=== PATIENT | female | born 2005 | race Caucasian/White ===

== ENCOUNTER 2025-07-20 21:12 | Emergency (ER) | payer BC, SELFPAY ==
--- NOTE | ~2025-07-20 | CT_ITS ---
CLINICAL HISTORY: R > L lower quadrant TTP CT abdomen and pelvis with contrast Comparison: None provided Findings: No consolidation or effusion. The liver is enlarged. There is periportal edema present. No significant fatty infiltration. No focal masses within the liver. Portal vein is patent. Hepatic veins appear normal. The spleen is normal. There is a small amount of pericholecystic fluid. This may be edema related to periportal edema seen in the liver. No fat stranding in the gallbladder fossa. No bowel obstruction, pneumoperitoneum, or pneumatosis. Moderate fecal loading in the right colon. Uterus and adnexa are normal. Appendix identified in the right lower quadrant, series 8, images 69 through 71, normal. Urinary bladder is normal. No ascites. The bones are intact. IMPRESSION: 1. Hepatomegaly with periportal edema and pericholecystic fluid. Findings could be related to underlying liver disease as well as other medical causes. Correlate with liver function values. This document has been electronically signed by: Stephon Candelaria MD on 07/21/2025 00:09:59
[2025-07-20 21:15] VITALS: BP 105/69; BP 110/70; PULSE 68; PULSE 80; RESP 16; TEMP 36.8; O2SAT 98; BMI 23.2
--- NOTE | 2025-07-20 21:22 | ED.ABDPAIN ---
HPI - Abdominal Pain General Chief Complaint: Abdominal Pain Stated Complaint: Ab pain headache N/V/D chills History of Present Illness ED Provider: Tk Marroquin MD HPI narrative: 19-year-old female with lower abdominal pain also started menses today but pain has been going on 2-3 days somewhat cramping occasionally sharp associated with diarrhea no blood dark stool. Nauseous occasional nonbloody nonbilious vomiting. No flank pain no dysuria no vaginal discharge. No recent antibiotics travel outside the country abdominal trauma she feels some pain in the upper abdomen. She does smoke marijuana daily. Related Data Allergies Allergy/AdvReac Type Severity Reaction Status Date / Time No Known Allergies Allergy Verified 07/20/25 21:22 [facility] Social History Social History Substance Use Type: Marijuana Physical Exam ED Exam Exam: EXAM: Gen: Alert, awake, well appearing, well hydrated. Head: Atraumatic Eyes: Anicteric, Normal conjunctiva. ENT: Moist mucosa, no pallor. ? Neck: Supple. Skin: ?No observable rash or bruising on exposed or examined skin Respiratory: Breathing comfortably, No distress.Clear to auscultation bilaterally, symmetric chest expansion, No wheeze, rales, ronchi. Cardiovascular: Regular rate and rhythm. No murmurs or rub. Well perfused periphery, warm extremities. No edema. ? Abdominal: Moderate tenderness across the lower abdomen is some focal right lower quadrant tenderness midepigastric tenderness as well Soft, no objective distension. No palpable masses or obvious organomegaly. ?No guarding, no rebound tenderness or other peritoneal findings. : No flank tenderness. Neuro: Alert. Gross movement of all extremities intact. ? Psych: Calm. Cooperative. MSK: No grossly visible deformity. Vital signs: See flowsheet Vital Signs: Vital Signs - 24 hr 07/20/25 21:15 07/21/25 00:30 07/21/25 01:12 Temperature 98.3 F 98.5 F 98.5 F Pulse Rate 68 86 86 Respiratory Rate 16 16 16 Blood Pressure 105/69 103/53 L 103/53 L Pulse Oximetry 98 99 99 Oxygen Delivery Method Room Air Room Air Room Air BMI result Body Mass Index 23.2 Procedures Procedure Narrative Procedure Narrative: EMERGENCY ULTRASOUND INTERPRETATION- Limited Point of Care Biliary [This study was ordered, performed, and interpreted by myself. The study reveals: Impression: NO EVIDENCE OF ACUTE INFLAMMATION OF THE GALLBLADDER, NO EVIDENCE OF OBSTRUCTIVE BILIARY DISEASE] [Indication: RUQ PAIN Gallbladder: NO WALL THICKENING > 4MM, NO PERICHOLECYSTIC FLUID, NOT GROSSLY DILATED/HYDROPIC. -Additional: WALL MEASUREMENT: CBD MEASURMENT IF OBTAINED: Performed by: Tk Marroquin MD Images were stored CPT:[id number]] Medical Decision Making Medical Decision Making MDM Narrative: [age] female with lower abdominal pain nausea vomiting diarrhea. No recent antibiotics. No peritoneal signs. Biliary ultrasound reassuring CT described possibility of pericholecystic fluid this is not seen on biliary ultrasound see my report. Nor were there any masses or abnormalities on the visualized portions of the liver. Minimal transaminitis ALT predominant with no bilirubin elevation or alk phos nonobstructive lab pattern. She has not an alcoholic has no healthy hypoalbuminemia unclear wide a CT reading nonspecific finding of periportal edema strongly advised follow up with GI to further elucidate this patient feeling little bit better after antiemetics fluid Differential Diagnosis Differential Diagnoses: The differential diagnosis associated with the presentation includes Gastroenteritis food-borne illness appendicitis biliary colic pancreatitis cannabis hyperemesis dehydration electrolyte derangement Lab Data 07/20/25 21:37 07/20/25 21:37 Labs: Lab Results 07/20/25 Range/Units 21:37 WBC 5.9 (4.8-10.8) X10*3/uL RBC 3.47 L (4.20-5.50) X10*6/uL Hgb 10.7 L (12.0-16.0) g/dl Hct 33.0 L (37.0-47.0) % MCV 95.1 (80.0-98.0) fL MCH 30.8 (27.0-33.0) pg MCHC 32.4 (31.0-35.0) g/dl RDW 13.4 (11.0-16.0) % Plt Count 236 (160-400) X10*3/uL MPV 9.8 (9.4-12.3) fL Immature Gran % (Auto) 0.3 (0.0-0.4) % Neut % (Auto) 45.8 (45-73) % Lymph % (Auto) 46.3 H (20-40) % Esmeralda % (Auto) 4.9 (2-11) % Eos % (Auto) 2.0 (0-4) % Baso % (Auto) 0.7 (0-2) % Lymph # (Auto) 2.7 (1.2-4.9) X10*3/uL Esmeralda # (Auto) 0.3 (0.1-1.2) X10*3/uL Eos # (Auto) 0.1 (0.0-0.4) X10*3/uL Baso # (Auto) 0.0 (0.0-0.2) X10*3/uL Abs Immat Gran (auto) 0.02 (0.00-0.03) X10*3/uL Absolute Neuts (auto) 2.7 (2.0-8.3) x10*3/uL Absolute Nucleated RBC 0.000 (0.0-0.012) X10*3/uL Nucleated RBC % (auto) 0.0 (0.0-0.2) /100WBC Sodium 142 (135-145) mmol/L Potassium 3.3 (3.3-5.1) mmol/L Chloride 113 H (96-108) mmol/L Carbon Dioxide 24 (22-29) mmol/L Anion Gap 8 L (12-20) BUN 11 (9-16) mg/dL Creatinine 0.61 (0.5-1.4) mg/dL Estim Creat Clear Calc 131.2 Estimated GFR > 60 Random Glucose 81 (60-115) mg/dL Calcium 8.7 (8.4-10.2) mg/dL Magnesium 2.0 (1.6-2.6) mg/dL Total Bilirubin 0.3 (0.0-1.0) mg/dL AST 50 H (5-31) U/L ALT 54 H (0-31) U/L Alkaline Phosphatase 65 (39-117) U/L Total Protein 7.0 (6.5-8.0) g/dL Albumin 4.3 (3.5-5.0) g/dL Lipase 18 (8-78) U/L Beta HCG, Quant < 2 mIU/mL Urine Color Yellow Urine Appearance Clear Urine pH 8.0 (5.0-9.0) Ur Specific [place] 1.010 (1.005-1.025) Urine Protein Negative (Neg-Trace) mg/dL Urine Glucose (UA) Negative (Negative) mg/dL Urine Ketones Negative (Negative) mg/dL Urine Blood Moderate (2+) H (Negative) Urine Nitrite Negative (Negative) Ur Leukocyte Esterase Small (1+) H (Negative) Urine RBC 6-10 H (0-2) /HPF Urine WBC 11-20 H (0-5) /HPF Ur Squamous Epith Cells 0-2 (0-2) /HPF Urine Bacteria None Seen (None Seen) Hyaline Casts 0-2 (0-2) /LPF Influenza Type A (PCR) NEGATIVE (Negative) Influenza Type B (PCR) NEGATIVE (Negative) RSV RNA Qual (PCR) NEGATIVE (Negative) SARS-CoV-2 RNA (RT-PCR) NEGATIVE (Negative) Independent Historian Clinical information obtained from an independent historian. History obtained from or confirmed by: Friend Medications Administered Discontinued Medications Generic Name Dose Route Start Last Admin Trade Name Freq PRN Reason Stop Dose Admin Dicyclomine HCl 10 mg 07/20/25 22:13 07/20/25 22:39 Dicyclomine Hcl 10 Mg Capsule PO 07/20/25 22:14 10 mg ONCE ONE Administration Lactated Ringer's 1,000 mls @ 999 mls/hr 07/20/25 22:15 07/20/25 23:40 Lr IV 07/20/25 23:15 Infused .Q1H1M ESTELITA Infusion Iohexol 85 ml 07/20/25 23:44 07/20/25 23:44 Iohexol 350 Mg/Ml 100 Ml Infus..Btl IV 07/20/25 23:45 85 ml ONCE ONE Administration Ketorolac Tromethamine 15 mg 07/20/25 22:13 07/20/25 22:39 Ketorolac Tromethamine 15 Mg/Ml Vial IVPUSH 07/20/25 22:14 15 mg ONCE ONE Administration Discharge Plan Discharge Clinical Impression: Abnormal transaminases, Abdominal pain Patient Disposition: Home, Self-Care Instructions: Acute Abdominal Pain (ED) Additional Instructions: You were evaluated for abdominal pain upper and lower. Your lab work was reassuring you had only minimal transaminitis meeting mild elevated liver enzymes. We sent additional tests for viral hepatitis but these have not yet returned we will call you if those are positive. CT of your abdomen was reassuring but did have some findings that we were unable to correlate with your presentation including edema or swelling around your portal vein and structures in your liver an ultrasound your liver and gallbladder did not show any major abnormalities or gallstones. We strongly urge you to follow up with a lithography contact worker as soon as you can if you establish a primary doctor they can refer you ____ CT findings are detailed below: CT: CLINICAL HISTORY: R > L lower quadrant TTP CT abdomen and pelvis with contrast Comparison: None provided Findings: No consolidation or effusion. The liver is enlarged. There is periportal edema present. No significant fatty infiltration. No focal masses within the liver. Portal vein is patent. Hepatic veins appear normal. The spleen is normal. There is a small amount of pericholecystic fluid. This may be edema related to periportal edema seen in the liver. No fat stranding in the gallbladder fossa. No bowel obstruction, pneumoperitoneum, or pneumatosis. Moderate fecal loading in the right colon. Uterus and adnexa are normal. Appendix identified in the right lower quadrant, series 8, images 69 through 71, normal. Urinary bladder is normal. No ascites. The bones are intact. IMPRESSION: 1. Hepatomegaly with periportal edema and pericholecystic fluid. Findings could be related to underlying liver disease as well as other medical causes. Correlate with liver function values. This document has been electronically signed by: Stephon Candelaria MD on 07/21/2025 00:09:59 Interventions: ED Discharge Assessment Last Done: 07/21/25 01:12 Discharge Date/Time: 07/21/25 01:14 Print Language: Mauritanian
[2025-07-20 21:43] LABS: MANUAL DIFF FLAG NO
[2025-07-20 21:44] LABS: Hematocrit 33.0 % (37.0-47.0); Hemoglobin 10.7 g/dl (12.0-16.0); Imm Gran Abs Auto 0.02 X10*3/uL (0.00-0.03); Imm Gran Pct Auto 0.3 % (0.0-0.4); Lymphocytes Absolute Auto 2.7 X10*3/uL (1.2-4.9); Mean Corpuscular HGB Conc 32.4 g/dl (31.0-35.0); Mean Corpuscular Hemoglobin 30.8 pg (27.0-33.0); Mean Corpuscular Volume 95.1 fL (80.0-98.0); NRBC Abs Auto 0.000 X10*3/uL (0.0-0.012); NRBC Pct Auto 0.0 /100WBC (0.0-0.2); Platelet Count 236 X10*3/uL (160-400); Red Blood Count 3.47 X10*6/uL (4.20-5.50); White Blood Count 5.9 X10*3/uL (4.8-10.8)
[2025-07-20 21:45] LABS: Appearance Urine Clear; Glucose Urine UA Negative (Negative); PH 8.0 (5.0-9.0); Specific Gravity - Urine 1.010 (1.005-1.025); UMIC TRIGGER UACC YES
[2025-07-20 21:47] LABS: UACC Culture Trigger YES
[2025-07-20 22:03] LABS: Alanine Aminotransferase 54 U/L (0-31); Albumin Level 4.3 g/dL (3.5-5.0); Alkaline Phosphatase 65 U/L (39-117); Anion Gap 8 (12-20); Aspartate Amino Transferase 50 U/L (5-31); Blood Urea Nitrogen 11 mg/dL (9-16); Calcium 8.7 mg/dL (8.4-10.2); Carbon Dioxide 24 mmol/L (22-29); Chloride 113 mmol/L (96-108); Creatinine Clr Calc Pharmacy 131.2; Estimated Glomerular Filt Rate > 60; Lipase 18 U/L (8-78); Magnesium 2.0 mg/dL (1.6-2.6); Potassium 3.3 mmol/L (3.3-5.1); Sodium 142 mmol/L (135-145); Total Protein 7.0 g/dL (6.5-8.0)
--- OUTSIDE RECORDS SUMMARY | 2025-07-20 22:03 | XMS_ITS | Encounter Summary ---
Author Organization [facility] Address [address] 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 Name Role Phone Pratima Johnson MD Primary Care Provider Encounter Details Date Type Department Care Team (Late st Contact Info) Description 03/29/2021 External Documentation [facility] Nephrology [address] [id number] Jose Nash MD [address] [place] [address] Social History Tobacco Use Types Packs/Day Years Used Date Smoking Tobacco: Never Assessed Comments No Sex and Gender Information Value Date Recorded Sex Assigned at Not on file Legal Sex Female 2:01 AM EST Gender Identity Not on file Sexual Orientation Not on file documented as of this encounter Plan of Treatment Not on file documented as of this encounter Visit Diagnoses Not on filedocumented in this encounter Care Teams [employer]el Locomotive 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
--- OUTSIDE RECORDS SUMMARY | 2025-07-20 22:03 | XMS_ITS | Data Portability ---
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 Due to the nature of telemedicine the ability to do physical assessment was limited to what can be accomplished by patient directed video recording based on instruction. Those limits are understood by the patient and myself. Impression is based on history, available information and physical findings accomplished with video assist. Chronic disease/problem list/medication list reviewed and updated where indicated. Discussed diagnosis, plan including risks, benefits and options of treatment. Advised to call for new, worsening or persistent symptoms. Level of patient risk was of moderate complexity due to the documented nature of presentation, the information assessment required and the nature of the development of an evaluation and treatment plan as documented. PMH, FHx, SHx, Surgical Hx, Quality Management review carried out and addressed as documented today as part of this visit. Medication list was reviewed and adjusted as indicated. Medication requiring a refill was addressed. Risk and benefits of any new medications were discussed and all questions answered. Potential drug interactions were considered. Patient is encouraged to visit and use our patient communicator portal as a general health care informational tool, as a means of reviewing all visit testing, patient specific information and visit summary recommendations generated as part of all patient visits, as a secure means of communication with our office and the doctor for any purpose any time and as a great means to get a copy of patient specific medical records as needed any time and anywhere. Help is always available from our staff as needed for instruction on using the portal to its fullest and for the re-issue of the needed pin numbers as well as step by step instructions on gaining access to and using the secure patient portal. The secure patient portal is a huge benefit of being a patient in this practice and we can't recommend its daily use enough. colby Not available 03/20/2023 11:42:28 Plan of Treatment Reminders Order Date Submit Date Provider Last Modified By Organization Details Last Modified Time Details Appointments None recorde d. Lab None recorde d. 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 Work on ROm 2022 023 [facility], [address] [place] [address], [id number], 3 16:11:13 Procedures None recorde d. Surgeries None recorde d. Imaging XR, hand, 3 or more view 2024 025 [facility], [address] [place] [address], Floor [address], [place], [address], 5 08:40:49 XR, hand, 3 or more view 2022 023 [facility], [address] [place] [address], Floor [address], [place], [address], 3 07:59:53 XR, hand, 3 or more view [address] [facility], [address] [place] [address], [address], [place], [address], 3 14:18:58 Medication Orders Celesto ne Soluspa n 6 mg/mL suspens ion for injecti on 2024 025 [id number], [address] [place], [phone], 5 16:40:31 lidocai ne HCl 10 mg/mL (1 %) injecti on solutio n 2024 025 [id number], [address] [place], [place], [phone], 5 16:40:31 Patient TargetsNo targets recorded. Patient InstructionsNo instructions recorded. 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 Work on ROm Referring Physician: Aneesh Moreno, Orthopedic Surgery, Encounter Date: 12/16/2022 Results Created Date Observation Date Name Description Value Unit Range Abnormal Flag Note LastModifiedBy Organization Detail LastModifiedTime 11/20/1911/19/2022 PT INR PT 10.9 secon ds 9.4-12 .0 normal Not Available [facility] [address] [place] [address], [id number], 11/19/2022 11:37:16 11/20/19 23 11/19/2022 PT INR PT INR 1.1 0.8-1. 2 normal Not Available [facility] [address] [place] [address], [id number], 11/19/2022 11:37:16 11/20/19 23 11/19/2022 CBC WBC 4.84 k/uL 3.98-1 0.04 normal Not Available [facility] [address] [place] [address], [address], 11/19/2022 11:43:28 11/20/19 23 11/19/2022 CBC RBC 4.57 m/uL 3.93-5 .22 normal Not Available [facility] [address] [place] [address], [id number], 11/19/2022 11:43:28 11/20/19 23 11/19/2022 CBC HGB 13.0 g/dL 11.2-1 5.7 normal Not Available [facility] [address] [place] [address], [address], 11/19/2022 11:43:28 11/20/19 23 11/19/2022 CBC HCT 40.4 % 34.1-4 4.9 normal Not Available [facility] [address] [place] [address], [address], 11/19/2022 11:43:28 11/20/19 23 11/19/2022 CBC MCV 88.4 fL 79.4-9 4.8 normal Not Available [facility] [address] [place] [address], [address], 11/19/2022 11:43:28 11/20/19 23 11/19/2022 CBC MCH 28.4 pg 25.6-3 2.2 normal Not Available [facility] [address] [place] [address], [address], 11/19/2022 11:43:28 11/20/19 23 11/19/2022 CBC MCHC 32.2 g/dL 32.2-3 5.5 normal Not Available [facility] [address] [place] [address], [address], 11/19/2022 11:43:28 11/20/19 23 11/19/2022 CBC RDW 13.4 % 11.7-1 4.4 normal Not Available [facility] [address] [place] [address], [address], 11/19/2022 11:43:28 11/20/19 23 11/19/2022 CBC platelet count 274 k/uL 182-36 9 normal Not Available [facility] [address] [place] [address], [address], 11/19/2022 11:43:28 11/20/19 23 11/19/2022 CBC MPV 10.0 fL 9.4-12 .3 normal Not Available [facility] [address] [place] [address], [address], 11/19/2022 11:43:28 11/20/19 23 11/19/2022 CBC absolute NRBC count 0.000 k/uL 0.000- 0.012 normal Not Available [facility] [address] [place] [address], [address], 11/19/2022 11:43:28 11/20/19 23 11/19/2022 CBC NRBC % 0.0 % 0.0-0. 2 normal Not Available [facility] [address] [place] [address], [address], 11/19/2022 11:43:28 11/20/19 23 11/19/2022 BASIC METAB OLIC glucose level 85 mg/dL 70-109 normal Gluco se Inter preti ve Data: A candace l fasti ng gluco se shirlene ntrat ion is less than 110 mg/dL . An impai red fasti ng gluco se shirlene ntrat ion is 110 - 125 mg/dL . A provi siona l diagn osis of diabe faisal can be made when a fasti ng gluco se shirlene ntrat ion is great er than 125 mg/dL . Not Available [facility] [address] [place] [address], [address], 11/19/2022 11:56:16 11/20/19 23 11/19/2022 BASIC METAB OLIC BUN 11 mg/dL 7-26 normal Not Available [facility] [address] [place] [address], [id number], 11/19/2022 11:56:16 11/20/19 23 11/19/2022 BASIC METAB OLIC creatinine 0.8 mg/dL 0.6-1. 1 normal Estim ated Glome rular Filtr ation Rate Inter preti ve Data: The Natio nal Kidne y Disea se Found ation (NKDF ) recom mends repor ting the estim ated Glome rular Filtr ation Rate (GFR) with every serum Creat inine resul t. [facility] r repor ts two estim ated GFRs; Afric an Ameri can (EST GFR AFRAM ER) and non-A frica n Ameri can (EST GFR NONAF R). The calcu latio n used is the main Perezif icati on of Diet in Renal Disea se Study equat ion (MDRD ) as recom kisha d by the NKDF. Not Available [facility] [address] [place] [address], [address], 11/19/2022 11:56:16 11/20/19 23 11/19/2022 BASIC METAB OLIC est GFR aframer >90 mL/mi n/1.7 3m2 >=60 normal Not Available [facility] [address] [place] [address], [address], 11/19/2022 11:56:16 11/20/19 23 11/19/2022 BASIC METAB OLIC est GFR nonafr 90 mL/mi n/1.7 3m2 >=60 normal Not Available [facility] [address] [place] [address], [address], 11/19/2022 11:56:16 11/20/19 23 11/19/2022 BASIC METAB OLIC Na 139 mmol/ L 136-14 5 normal Not Available [address], [address], 11/19/2022 11:56:16 11/20/19 23 11/19/2022 BASIC METAB OLIC K 4.0 mmol/ L 3.5-5. 1 normal Not Available [address], [address], 11/19/2022 11:56:16 11/20/19 23 11/19/2022 BASIC METAB OLIC cL 107 mmol/ L 98-107 normal Not Available [facility] [address] [place] [address], [address], 11/19/2022 11:56:16 11/20/19 23 11/19/2022 BASIC METAB OLIC CO2 26 mmol/ L 22-29 normal Not Available [facility] [address] [place] [address], [address], 11/19/2022 11:56:16 11/20/19 23 11/19/2022 BASIC METAB OLIC anion gap 10 10-20 normal Not Available [facility] [address] [place] [address], [address], 11/19/2022 11:56:16 11/20/19 23 11/19/2022 BASIC METAB OLIC calcium 9.7 mg/dL 8.4-10 .2 normal Not Available [facility] [address] [place] [address], [address], 11/19/2022 11:56:16 11/27/19 23 11/25/2022 XR, finge r(s) No observ ation record ed. [email or web address], [address], 11/26/2022 18:09:26 Result Notes None recorded. 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 Procedures Surgical History Date Name Laterality Status Provider Name and Address Organization Details Recorded Time 11/03/19 Radiology Interpretation #[address] completed MD [address], [place], [address], [facility] 11/03/2024 13:29:24 11/03/19 25 JB_FingerInjection s completed Chasity Hinton [facility] 11/02/2024 16:32:55 01/31/20 Radiology Interpretation #1 completed MD [address], [place], [address], [facility] 01/30/2023 16:22:38 12/17/19 Radiology Interpretation #1 completed MD [address], [place], [address], [facility] 12/16/2022 13:26:55 11/26/19 OPEN REDUCTION INTERNAL FIXATION, METACARPAL (SURG) completed Marine Schwartz [facility] 11/26/2022 10:38:47 11/07/19 Radiology Interpretation #1 completed MD [address], [place], [address], [facility] 11/06/2022 16:28:10 10/09/19 Radiology Interpretation #1 completed MD [address], [place], [address], [facility] 10/08/2022 16:34:30 09/17/19 Radiology Interpretation #1 completed MD [address], [place], [address], [facility] 09/17/2022 16:25:40 09/17/19 23 JB_fracturebrace completed MD Rad[address], [place], [address], [facility] 09/17/2022 16:28:21 07/28/19 23 Orthopaedic Surgery completed Chasity Hinton [facility] 11/02/2024 15:40:18 Imaging Results None recorded. Procedure Notes None recorded. Medical Equipment None Reported. Allergies No known drug allergies Medications Name Sig Start Date Stop Date Status Note LastModified by Organization Details LastModified Time quetiapine 25 mg tablet TAKE 1 TABLET BY MOUTH TWICE DAILY 11/02 completed Not Available Not Available Not Available lidocaine HCl 10 mg/mL (1 %) injection solution Take 0.5 mL as needed by injection route as needed. 2024 active Not Available Not Available Not Av[facility] promethazin e-DM 6.25 mg-15 mg/5 mL oral syrup TAKE 5 ML BY MOUTH FOUR TIMES DAILY NEEDED FOR COUGH 11/02 completed Not Available Not Available Not Available venlafaxine ER 37.5 mg capsule,ext ended release 24 hr TAKE 1 CAPSULE BY MOUTH DAILY active Not Available Not Available No t Available acetaminoph en 325 mg tablet TAKE 2 TABLETS BY MOUTH FOUR TIMES DAILY NEEDED FOR PAIN active Not Available Not Available No t Available venlafaxine ER 75 mg capsule,ext ended release 24 hr TAKE 1 CAPSULE BY MOUTH DAILY active Not Available Not Available No t Available albuterol sulfate 2.5 mg/3 mL (0.083 %) solution for nebulizatio n INHALE 1 UNIT EVERY 8 HOURS NEEDED FOR WHEEZING active Not Available Not Available No t Available levetiracet am 500 mg tablet 11/02 completed Not Available Not Available Not Available Celestone Soluspan 6 mg/mL suspension for injection Take 1 mL as needed by injection route as needed. 2024 active Not Available Not Available Not Isaiah goyal prazosin 1 mg capsule TAKE 1 CAPSULE BY MOUTH AT BEDTIME active Not Available Not Available No t Available prednisone 20 mg tablet TAKE 2 TABLETS BY MOUTH DAILY FOR 5 DAYS 11/02 completed Not Available Not Available Not Available quetiapine 100 mg tablet TAKE 1 TABLET BY MOUTH AT BEDTIME active Not Available Not Available No t Available ketorolac 10 mg tablet TAKE 1 TABLET BY MOUTH EVERY 6 HOURS NEEDED FOR PAIN 09/13 completed Not Available Not Available Not Available oxycodone-a cetaminophe n 5 mg-325 mg tablet TAKE 1 TABLET BY MOUTH EVERY 4 HOURS NEEDED FOR PAIN 11/02 completed Not Available Not Available Not Available estradiol 1 mg tablet TAKE 1 TABLET BY MOUTH EVERY DAY active Not Available Not Available No t Available fluticasone propionate 44 mcg/actuati on HFA aerosol inhaler INHALE 2 PUFFS INTO THE LUNGS TWICE DAILY FOR 14 DAYS active Not Available Not Available No t Available sertraline 25 mg tablet TAKE 1 TABLET BY MOUTH DAILY 09/13 completed Not Available Not Available Not Available hydrocortis one 2.5 % topical cream APPLY TOPICALLY TO THE AFFECTED AREA TWICE DAILY active Not Available Not Available No t Available hydroxyzine HCl 25 mg tablet TAKE 1 TABLET BY MOUTH FOUR TIMES DAILY FOR 3 DAYS NEEDED FOR ANXIETY active Not Available Not Available No t Available levetiracet am 750 mg tablet TAKE 1 TABLET BY MOUTH IN THE MORNING AND IN THE EVENING 11/02 completed Not Available Not Available Not Available ergocalcife rol (vitamin D2) 1,250 mcg (50,000 unit) capsule TAKE 1 CAPSULE BY MOUTH 1 TIME A WEEK active Not Available Not Available No t Available ibuprofen 600 mg tablet TAKE 1 TABLET BY MOUTH EVERY 6 HOURS NEEDED active Not Available Not Available No t Available methylpredn isolone 4 mg tablets in a dose pack FOLLOW PACKAGE DIRECTION S 11/02 completed Not Available Not Available Not Available albuterol sulfate HFA 90 mcg/actuati on aerosol inhaler INHALE 2 PUFFS BY MOUTH EVERY 6 HOURS NEEDED FOR WHEEZING active Not Available Not Available No t Available ondansetron 4 mg disintegrat ing tablet TAKE 1 TABLET (4 MG) BY MOUTH EVERY 8 HOURS NEEDED FOR NAUSEA active Not Available Not Available No t Available fluticasone propionate 50 mcg/actuati on nasal spray,suspe nsion SHAKE LIQUID AND USE 2 SPRAYS IN EACH NOSTRIL TWICE DAILY active Not Available Not Available No t Available sertraline 50 mg tablet TAKE 1 TABLET BY MOUTH DAILY 09/13 completed Not Available Not Available Not Available medroxyprog esterone 150 mg/mL intramuscul ar suspension ADMINISTE R 1 ML IN THE MUSCLE EVERY 3 MONTHS active Not Available Not Available No t Available naproxen 500 mg tablet TAKE 1 TABLET BY MOUTH TWICE DAILY FOR 7 DAYS NEEDED FOR PAIN active Not Available Not Available No t Available amoxicillin 875 mg-potassiu m clavulanate 125 mg tablet TAKE 1 TABLET BY MOUTH TWICE DAILY FOR 5 DAYS 11/02 completed Not Available Not Available Not Available Comp-Air Nebulizer Compressor USE DIRECTED active Not Available Not Available No t Available Flovent HFA 220 mcg/actuati on aerosol inhaler INHALE 1 PUFF INTO THE LUNGS TWICE DAILY active Not Available Not Available No t Available cholecalcif lionel (vitamin D3) 25 mcg (1,000 unit) tablet TAKE 1 TABLET BY MOUTH TWICE DAILY active Not Available Not Available No t Available Calcium 500 With D 500 mg-10 mcg (400 unit) tablet TAKE 1 TABLET BY MOUTH THREE TIMES DAILY active Not Available Not Available No t Available Vitamin D3 50 mcg (2,000 unit) tablet TAKE 1 TABLET BY MOUTH ONCE DAILY 09/13 completed Not Available Not Available Not Available ProChamber USE DIRECTED 09/13 completed Not Available Not Available Not Available Vitals Date Recorded Body height Heart rate Body temperature Body mass index (BMI) Body weight Systolic And Diastolic Provider Name and Address Organization Details Last Updated DateTime 160.02 cm 80 /min 98.3 [degF] 21.3 kg/m2 68305.0 8 g 117/80 mm[Hg] Chasity Hinton [facility] 15:45:03 Date Recorded Body height Provider Name an d Address Organization Details Last Updated DateTime 12/16/2022 [facility] 12/16/2022 11:29:58 Date Recorded Body height Provider Name an d Address Organization Details Last Updated DateTime 12/31/2022 165.1 cm [facility] 12/31/2022 15:44:26 Date Recorded Body height Provider Name an d Address Organization Details Last Updated DateTime 01/30/2023 165.1 cm [facility] 01/30/2023 16:09:38 Date Recorded Body height Provider Name an d Address Organization Details Last Updated DateTime 03/13/2023 165.1 cm [facility] 03/13/2023 15:01:55 Social History Question Answer Notes LastModified by Organizat ion Details LastModified Time Tobacco Smoking Status Never Smoker [facility] 09/17/2022 11:32:39 Are You Blind Or Do You Have Difficulty Seeing? No Information not available 09/17/2022 Is Blood Transfusion Acceptable In An Emergency? Yes Information not available 09/17/2022 What Is Your Level Of Caffeine Consumption? Occasional Information not available 09/17/2022 Are You Deaf Or Do You Have Serious Difficulty Hearing? No Information not available 09/17/2022 What Is The Highest Grade Or Level Of School You Have Completed Or The Highest Degree You Have Received? [id number] Information not available 09/17/2022 Which Of Your Hands Is Dominant? Right Information not available 09/17/2022 What Is Your Home Situation? Mother Information not available 09/17/2022 What Is Your Relationship Status? Single Information not available 09/17/2022 Are You Passively Exposed To Smoke? No Information no t available 09/17/2022 How Much Tobacco Do You Smoke? No Information not available 09/17/2022 How Many Years Have You Smoked Tobacco? 0 Information not available 09/17/2022 Have You Used IV Drugs? No Information not available 09/17/2022 How Many Years Have You Used E-cigarettes Or Vape? 0 Information not available 09/17/2022 Sex: Female Functional Status Question Answer Note LastModified by Organizat ion Details LastModified Time Do you use any illicit or recreational drugs? No Information not available 09/17/2022 Do you or have you ever used any other forms of tobacco or nicotine? No Information not available 09/17/2022 What is your level of alcohol consumption? Occasional Information not available 09/17/2022 Do you or have you ever used smokeless tobacco? Never used smokeless tobacco Information not available 09/17/2022 Are you currently employed? No Information not available 09/17/2022 Are you able to walk independently without assistance or assistive devices? YESWOREST Information not available 09/17/2022 Are you able to care for yourself independently? Yes Information not available 09/17/2022 Do you or have you ever used e-cigarettes or vape? Never used electronic cigarettes Information not available 09/17/2022 What is your exercise level? Moderate Information not available 09/17/2022 Mental Status Question Answer Note LastModified by Organization D etails LastModified Time Do you feel stressed (tense, restless, nervous, or anxious, or unable to sleep at night)? [id number] Information not available 09/17/2022 Family History Nothing Reported. Medical History Condition Response Anxiety Disorder Y Muscle, Joint, or Bone Problems Y Vitamin D Deficiency Y Seizures/Epilepsy Y Depression Y Gynecological History Statement/Question Response Have you had a pap smear in the last 2 y ears? 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 There is some angulation but is acceptable . So she may lose a slight bit of extension but I think most of difficulty with ROM right now due to pain and swelling. She wear the Exos brace for the next 3 weeks in follow-up for revisional and new x-rays and start moving. [id number] ANEESH MORENO MD Orthopedi [address] [place] [address] 10/08/2022 15:25:10 10/08/2022 16:03:39 Closed fracture of metacarpal bone 875712563 S62.309A this is a fracture that occurred the right hand. There is some angulation but is acceptable . So she may lose a slight bit of extension but I think some extension lacking still due to pain. She has significan t pain so she continue with the brace for 2 more weeks and then begin to transition out of it I did offer her surgery she is unhappy with the bump on the dorsum hand that will be there for ever or the lack of extension if it's persist. Preop she wants to discontinu e with fracture bracing. Follow up in 4 weeks with new x-rays [id number] ANEESH MORENO MD Orthopedi [address] [place] [address] 11/06/2022 15:37:44 11/06/2022 16:26:27 Closed fracture of metacarpal bone [id number] S62.309A this is a fracture that occurred the right hand. There is some angulation but is acceptable . she is still having pain although it is healing as expected. She that she is not happy with the lack of extension in the small finger and now that the pain is better she still can't extend it fully and feels that she can't flex it fully either. So the only way to counteract that would be surgery to take down the fx callus and straighten out the fracture so that she could again have full extension of the small finger patient says that since this is the dominant hand she wishes to proceed with that surgery. After comparing the likely outcomes of nonoperati ve versus operative treatment. Including all indication s risks, benefits, complicati ons, and different alternativ es, were discussed, and the patient decided to proceed with operative treatment. Complicati ons including infection, blood loss, blood clots, nerve injury, tendon injury, implant failure, failure to relieve all symptoms, need for additional surgery, malunion, nonunion, stiffness, loss of function risk of anesthesia , Stiffness . No guarantees were stated or implied. The patient understood the risks and was consented for surgery after these were discussed. All questions were answered. she takes Keppra which show only to be monitor vidhya op [id number] ANEESH MORENO MD Orthopedi [address] [place] [address] 12/16/2022 11:14:16 12/16/2022 12:01:42 Postoperative visit [id number] Z09 3wk post of Right hand fifth metacarpal open reduction internal fixation. She is doing well. She has some stiffness which is to be expected. I will send her to occupation al therapy to work on her range of motion. She does not need to immobilize the hand at this point since the screw fixation is good and so it is healing. She can soft dressing if needed. No soaking the wound for another week until the skin is healed. She can return to work at [employer] in a week. Follow up in 1 month to assess range of motion [id number] MD Anthony RAMOSedfrancesca [address] [place] [address] 12/31/2022 15:32:02 12/31/2022 15:53:11 Postoperative visit [id number] Z09 5 wks.christophe mcclain has regained full range of motion even though she has not been to occupation al therapy so there is no need for her to go. Seems like she had an eczematous rash over the scar which could be an eczema flare after surgery or it could be she contact dermatitis to either the Steri-Stri ps or something else that was used in the dressing. Juwan woodward seems to be self-resol ving and improving with the hydrocorti sone cream. She should continue to use that can also use Benadryl for itching if needed. Follow up next week as planned with x-rays [id number] MD Manfred RAMOS [address] [place] [address] 01/30/2023 15:46:07 01/30/2023 16:19:38 Postoperative visit [id number] Z09 2 mos status post right 5th metacarpal open reduction internal fixation she is doing very well the fracture is just about healed she has full range of motion and no pain. She also has a rash from a tick bite and I encouraged her to follow up with the primary care doctor to have that evaluated. Follow up in 6 weeks for 1 last visit [id number] MD Anthony RAMOSed[address] [place] [address] 03/13/2023 14:57:46 03/13/2023 15:27:53 Postoperative visit [id number] Z09 2.5 mos status post right 5th metacarpal open reduction internal fixation she is doing very well she is no pain full range of motion. However this was a tele visit the last x-rays show she still had some healing so she can continue with activity but I want her to follow up in 1 month for an office visit and an x-ray [id number] MD Anthony RAMOSedfrancesca [address] [place] [address] 11/02/2024 15:21:25 11/02/2024 16:34:52 Entrapment of right ulnar nerve at elbow [id number] G56.21 [id number] 11/02/24: Patient has symptoms consistent with cubital tunnel syndrome. Patient was instructed to sleep with their arms straight, avoid leaning on elbows and to avoid using a phone with the elbows in a flexed position. 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 I explained that usually this completely resolves the problem. However if symptoms persist or recur, injection can be repeated 1 time in 6 weeks. Should symptoms persist after that I would recommend surgical release of the A1 sandy I do not think her pain is related to his surgery I think he is actually more from trigger finger Health Concerns Section Related Observation LastModified by Organization Detai ls LastModified Time None Recorded Concern Status LastModified by Organization Details LastModified Time None Recorded Advance Directives Directive None Recorded Payers Insurance Date Sequence Insurance Name Policy Number Policy Melgoza Covered Member ID Melgoza Member ID Guarantor Name 12/26/2024 1 [facility] (MEDICAID HMO) [id number] Thiago Moses [id number] Thiago Moses Notes Date Note Type Note Provider Name and Address Organization Details Recorded Time 3 text/html Ortho Wrist/HandReported by PatientHPIFor associated symptoms, patient reportsweaknessandswellin g. For hand dominance, patient reportsright. For location, patient reportsright,right small finger, andright ring finger. For quality, patient reportsaching (of the small finger)andfrequent. For severity, patient reportspain level 3-4/10andworst pain 7/10. For duration, patient reportsdate of onset: (09/10/22). For timing, patient reportsacute. For context, patient reportsfall (seizure). For alleviating factors, patient reportsnsaids (tylenol)(has discontinued oxycodone. is wearing a splint). For aggravating factors, patient reportsgripping,grasping, squeezing, androm (is improving but still unable to fully extend or flex her finger). For previous surgery, patient reportssurgical procedure: (right hand fifth metacarpal open reduction internal fixation). For prior imaging, patient reportsx ray ([facility] office 12/16[facility]22). For previous injections, patient reportsnone. For previous pt, patient reportsnone. For working, patient reportsregular duty ([employer]).10/08/22 - Patient presents for a 3 wk f/u on closed fracture of right 5th metacarpal bone. She was placed in an Exos brace at her last visit. still having significant pain. 11/06/22 - Patient presents for a 4 wk f/u on closed fracture of right 5th metacarpal bone with new xrays. She was advised to transition out of the exos brace at her last visit. She states the that she is still having significant pain over the dorsum of the hand and difficulty moving her fingers. 12/16/22- Patient presents for a 3wk post of Right hand fifth metacarpal open reduction internal fixation. She is having minimal pain. ANEESH MORENO MD [address] [facility], [place], [address], [facility] - [facility] 12/16/2022 13:33:45 3 text/html Ortho Wrist/HandReported by PatientHPIFor associated symptoms, patient reportsweaknessandswellin g. For hand dominance, patient reportsright. For location, patient reportsright,right small finger, andright ring finger. For quality, patient reportsaching (of the small finger mcp joint)andfrequent(itchy sensation). For severity, patient reportspain level 2/10andworst pain 5/10. For duration, patient reportsdate of onset: (09/10/22). For timing, patient reportsacute. For alleviating factors, patient reportsnsaids (tylenol)(hydro cortizone). For aggravating factors, patient reportsgripping,grasping, squeezing, androm (is improving but still unable to fully extend or flex her finger). For previous surgery, patient reportssurgical procedure: (right hand fifth metacarpal open reduction internal fixation). For prior imaging, patient reportsx ray (in [facility] office 12[facility]). For previous injections, patient reportsnone. For previous pt, patient reportsnone(patient stated that she missed her first appointment and that she has called back to reschedule but hasn't heard back from them). For working, patient reportsregular duty ([employer]). For context, (patient states that bumps started to appear on her hand 3-4 days after her appointment.).10/08/22 - Patient presents for a 3 wk f/u on closed fracture of right 5th metacarpal bone. She was placed in an Exos brace at her last visit. still having significant pain. 11/06/22 - Patient presents for a 4 wk f/u on closed fracture of right 5th metacarpal bone with new xrays. She was advised to transition out of the exos brace at her last visit. She states the that she is still having significant pain over the dorsum of the hand and difficulty moving her fingers. 12/16/22- Patient presents for a 3wk post of Right hand fifth metacarpal open reduction internal fixation. She is having minimal pain. 12/31/22- Patient presents for a 5wk post of Right hand fifth metacarpal open reduction internal fixation 11/25/22 she is not having any pain and has returned to full activity pretty much. However the past week after leaving the office she started having a rash over the dorsum of the hand around the incision. She had erythema itchiness and blistering. She put hydrocortisone cream on it which seemed to help a lot the blisters popped and has been kind resolving. She does have a history of eczema she is not gone to OT she did return to work and just a little bit tender after doing a lot of activity. ANEESH MORENO MD [address] [facility], [place], [address], [facility] - [facility] 12/31/2022 16:24:18 3 text/html Ortho Wrist/HandReported by PatientHPIFor associated symptoms, patient reportsweaknessandswellin g. For hand dominance, patient reportsright. For location, patient reportsright,right small finger, andright ring finger. For quality, patient reportsaching (of the small finger mcp joint)andfrequent(itchy sensation). For severity, patient reportspain level 1/10andworst pain 2/10. For duration, patient reportsdate of onset: (09/10/22). For timing, patient reportsacute. For alleviating factors, patient reportsnsaids (tylenol)(hydro cortizone). For aggravating factors, patient reportsgripping,grasping, squeezing, androm (is improving but still unable to fully extend or flex her finger). For previous surgery, patient reportssurgical procedure: (right hand fifth metacarpal open reduction internal fixation). For prior imaging, patient reportsx ray (in [facility] office 12[facility]). For previous injections, patient reportsnone. For previous pt, patient reportsnone(patient stated that she missed her first appointment and that she has called back to reschedule but hasn't heard back from them. not need per ). For working, patient reportsregular duty ([employer]). For context, (patient states that bumps started to appear on her hand 3-4 days after her appointment.).10/08/22 - Patient presents for a 3 wk f/u on closed fracture of right 5th metacarpal bone. She was placed in an Exos brace at her last visit. still having significant pain. 11/06/22 - Patient presents for a 4 wk f/u on closed fracture of right 5th metacarpal bone with new xrays. She was advised to transition out of the exos brace at her last visit. She states the that she is still having significant pain over the dorsum of the hand and difficulty moving her fingers. 12/16/22- Patient presents for a 3wk post of Right hand fifth metacarpal open reduction internal fixation. She is having minimal pain. 12/31/22- Patient presents for a 5wk post of Right hand fifth metacarpal open reduction internal fixation 11/25/22 she is not having any pain and has returned to full activity pretty much. However the past week after leaving the office she started having a rash over the dorsum of the hand around the incision. She had erythema itchiness and blistering. She put hydrocortisone cream on it which seemed to help a lot the blisters popped and has been kind resolving. She does have a history of eczema she is not gone to OT she did return to work and just a little bit tender after doing a lot of activity. 01/30/23- Patient presents for a 6 wk post of Right hand fifth metacarpal open reduction internal fixation 11/25/22 she is doing very well. She is having only minimal occasional pain. She did not go to occupational therapy but has worked on her motion at home and has good motion. She is a little bit of numbness tingling in the dorsum of the hand. She mentions she was recently bitten by a tick inset some rashes on the hand and arm. She is very happy with the outcome of her surgery ANEESH MORENO MD [address] [place] [address], [place], [address], [facility] 01/30/2023 16:26:29 3 text/html Ortho Wrist/HandReported by PatientHPIFor hand dominance, patient reportsright. For location, patient reportsright,right small finger, andright ring finger. For quality, patient reportsaching (of the small finger mcp joint has improved),frequent, andimproving (greatly). For severity, patient reportspain level 1/10andworst pain 2/10. For duration, patient reportsdate of onset: (09/10/22). For timing, patient reportsacute. For previous surgery, patient reportssurgical procedure: (right hand fifth metacarpal open reduction internal fixation). For prior imaging, patient reportsx ray (in [facility] office 12[facility]). For previous injections, patient reportsnone. For previous pt, patient reportsnone(patient stated that she missed her first appointment and that she has called back to reschedule but hasn't heard back from them. not need per ). For working, patient reportsregular duty ([employer]). For context, (patient states that bumps started to appear on her hand 3-4 days after her appointment.).10/08/22 - Patient presents for a 3 wk f/u on closed fracture of right 5th metacarpal bone. She was placed in an Exos brace at her last visit. still having significant pain. 11/06/22 - Patient presents for a 4 wk f/u on closed fracture of right 5th metacarpal bone with new xrays. She was advised to transition out of the exos brace at her last visit. She states the that she is still having significant pain over the dorsum of the hand and difficulty moving her fingers. 12/16/22- Patient presents for a 3wk post of Right hand fifth metacarpal open reduction internal fixation. She is having minimal pain. 12/31/22- Patient presents for a 5wk post of Right hand fifth metacarpal open reduction internal fixation 11/25/22 she is not having any pain and has returned to full activity pretty much. However the past week after leaving the office she started having a rash over the dorsum of the hand around the incision. She had erythema itchiness and blistering. She put hydrocortisone cream on it which seemed to help a lot the blisters popped and has been kind resolving. She does have a history of eczema she is not gone to OT she did return to work and just a little bit tender after doing a lot of activity. 01/30/23- Patient presents for a 6 wk post of Right hand fifth metacarpal open reduction internal fixation 11/25/22 she is doing very well. She is having only minimal occasional pain. She did not go to occupational therapy but has worked on her motion at home and has good motion. She is a little bit of numbness tingling in the dorsum of the hand. She mentions she was recently bitten by a tick inset some rashes on the hand and arm. She is very happy with the outcome of her surgery 03/13/23- Patient presents for a 15 wk post of Right hand fifth metacarpal open reduction internal fixation 11/25/22. she is doing well not having any pain. She is returned to work. She has full motion hand with no complaints ANEESH MORENO MD [address] [facility], [place], [address], [facility] - [facility] 03/20/2023 11:42:39 5 text/html Ortho Wrist/HandReported by PatientHPIFor associated symptoms, patient reportsweakness,numbness, tingling, andswelling. For hand dominance, patient reportsright. For location, patient reportsrightandright small finger. For quality, patient reportsaching (of the small finger mcp joint has improved),frequent,worsen ing, andimproving (greatly). For severity, patient reportspain level 6/10andworst pain 10. For duration, patient reportsdate of onset: (09/10/22). For timing, patient reportsacute. For context, patient reportscannot identify. For alleviating factors, patient reportsheat,ice, andotc medication (tylenolmotrinadvil). For aggravating factors, patient reportslifting,carrying,p ushing/pulling,gripping,g rasping, andsqueezing. For previous surgery, patient reportssurgical procedure: (right hand fifth metacarpal open reduction internal fixation). For prior imaging, patient reportsx ray (in office 11/02/2024.). For previous injections, patient reportsnone. For previous pt, patient reportsnone. For working, patient reportsregular duty ([employer]).10/08/22 - Patient presents for a 3 wk f/u on closed fracture of right 5th metacarpal bone. She was placed in an Exos brace at her last visit. still having significant pain. 11/06/22 - Patient presents for a 4 wk f/u on closed fracture of right 5th metacarpal bone with new xrays. She was advised to transition out of the exos brace at her last visit. She states the that she is still having significant pain over the dorsum of the hand and difficulty moving her fingers. 12/16/22- Patient presents for a 3wk post of Right hand fifth metacarpal open reduction internal fixation. She is having minimal pain. 12/31/22- Patient presents for a 5wk post of Right hand fifth metacarpal open reduction internal fixation 11/25/22 she is not having any pain and has returned to full activity pretty much. However the past week after leaving the office she started having a rash over the dorsum of the hand around the incision. She had erythema itchiness and blistering. She put hydrocortisone cream on it which seemed to help a lot the blisters popped and has been kind resolving. She does have a history of eczema she is not gone to OT she did return to work and just a little bit tender after doing a lot of activity. 01/30/23- Patient presents for a 6 wk post of Right hand fifth metacarpal open reduction internal fixation 11/25/22 she is doing very well. She is having only minimal occasional pain. She did not go to occupational therapy but has worked on her motion at home and has good motion. She is a little bit of numbness tingling in the dorsum of the hand. She mentions she was recently bitten by a tick inset some rashes on the hand and arm. She is very happy with the outcome of her surgery 03/13/23- Patient presents for a 15 wk post of Right hand fifth metacarpal open reduction internal fixation 11/25/22. she is doing well not having any pain. She is returned to work. She has full motion hand with no complaints 11/02/2024- patient is here for right hand pain. patient had right hand fifth metacarpal open reduction internal fixation on 11/25/2022. She says the pain starts from the small finger and radiates towards her hand. Pain started a couple of month ago with some swelling, numbness and tingling. She took tylenol as needed for pain. she was numbness and tingling in the ulnar 2 digits particularly early if she bends her elbow for extended amount of time ANEESH MORENO MD [address], [place], [address], [facility] 11/03/2024 13:34:57 OBGyn Episode No OBEpisode recorded.
--- OUTSIDE RECORDS SUMMARY | 2025-07-20 22:03 | XMS_ITS | Clinical Summary ---
Author Organization [facility] Address [address] [place] [address] Care Team Providers Care [employer] Name Role Phone Pratima Johnson MD Primary Care Provider + Allergies No known active allergies Medications sertraline (ZOLOFT) 25 mg Oral tablet TAKE 1 TABLET BY MOUTH DAILY 04/08/2022 Active QUEtiapine (SEROQUEL) 25 mg Oral tablet TAKE 1 TABLET BY MOUTH TWICE DAILY 03/18/2022 Active venlafaxine-XR 37.5 mg extended release capsule TAKE 1 CAPSULE BY MOUTH DAILY 02/13/2023 Active levETIRAcetam (KEPPRA) 750 mg Oral tablet take 1 tab by mouth in the morning and 1 tab in the evening. 60 tab 5 09/25/2023 Active levETIRAcetam (KEPPRA) 500 mg Oral tablet TAKE 1 TABLET BY MOUTH EVERY MORNING AND 1& 1/2 TABLETS EVERY EVENING 75 tab 06/09/2025 Active Active Problems Problem Noted Date Diagnosed Date Generalized seizure 04/15/2022 Encounters Date Type Department Care Team Description 06/09/2025 Refill [facility] [address] [place] [id number] Yennifer Haines MD from Last 3 Months Social History Tobacco Use Types Packs/Day Years Used Date Smoking Tobacco: Some Days Smokeless Tobacco: Never Tobacco Cessation:Ready to Q uit: Not Asked; Counseling Given: Not Answered Alcohol Use Standard Drinks/Week Comments Not Currently 0 (1 standard drink = 0.6 oz pur e alcohol) Comments No Sex and Gender Information Value Date Recorded Sex Assigned at Not on file Legal Sex Female 2:09 AM EDT Gender Identity Not on file Sexual Orientation Not on file Last Filed Vital Signs Vital Sign Reading Time Taken Comments Blood Pressure 118/82 09/25/2023 1:19 PM EST Pulse 90 09/25/2023 1:19 PM EST Temperature - - Respiratory Rate 20 09/25/2023 1:19 PM EST Oxygen Saturation - - Inhaled Oxygen Concentration - - Weight 86.2 kg (190 lb) 09/25/2023 1:19 PM EST Height 165.1 cm (5' 5 ) 09/25/2023 1:19 PM EST Body Mass Index 31.62 09/25/2023 1:19 PM EST Plan of Treatment Health Maintenance Due Date Last Done Comments Meningococcal Vaccine B (1 o f 2 - Standard) 2019 HIV Screening 10/30/2021 Hepatitis C Screening 10/30/2021 Pneumococcal Vaccine: Peds ( 0-5 yo) & At Risk (2-64 yo) (1 of 2 - PCV) 10/30/2022 08/30/2005, 04/24/2005, 11/06/2004, Additional history exists Depression Screening 07/28/2024 PAP 10/30/2024 INFLUENZA VACCINE 03/28/2025 09/07/2004, 08/07/2004 HPV Vaccines Completed 10/05/2015, 12/2015, 11/02/2014 Meningococcal Vaccine ACWY Completed 05/12, 05/05/2020, 11/02/2014 Insurance MEDICAID [place] [facility] [place] [facility] Care Teams [employer] Relationship Specialty Start Date End Date Pratima Johnson MD [address] [place] [address] PCP - General PEDIATRICS 02/19/22
--- OUTSIDE RECORDS SUMMARY | 2025-07-20 22:03 | XMS_ITS | Clinical Summary ---
Author Organization [facility] Address [address] [place] [address] Care Team Providers Care Team [employer] Name Role Phone Pratima Johnson MD Primary Care Provider [phone] Social History Tobacco Use Types Packs/Day Years Used Date Smoking Tobacco: Never Assessed Comments No Sex and Gender Information Value Date Recorded Sex Assigned at Not on file Legal Sex Female 2:01 AM EST Gender Identity Not on file Sexual Orientation Not on file Last Filed Vital Signs Vital Sign Reading Time Taken Comments Blood Pressure 114/58 04/13/2020 3:00 PM EDT Pulse 74 04/13/2020 3:00 PM EDT Temperature - - Respiratory Rate - - Oxygen Saturation - - Inhaled Oxygen Concentration - - Weight 49 kg (108 lb 0.4 oz) 02/23/2021 10:00 AM EDT Height 164.9 cm (5' 4.92 ) 04/13/2020 3:00 PM ED T Body Mass Index - - Plan of Treatment Health Maintenance Due Date Last Done Comments Hepatitis C Screening 2003 HPV/COTEST 01/30/2004 Well Child Visit 10/30/2006 HPV Vaccine (1 - 3-dose series) 10/30/2018 Chlamydia Screening 2019 Meningococcal B (MenB) (1 of 2 - Standard) 2019 Depression Screening 10/30/2021 DTap/Tdap/Td Vaccines (1 - Tdap) 2023 CERVICAL CANCER SCREENING 10/30/2024 PAP SMEAR 10/30/2024 Covid-19 Vaccine ( - season) 2025 Influenza Vaccine 03/28/2025 08/17/2010, , 08/07/2004 Hepatitis B Vaccines Completed 08/07/2004, 05/08/2004, 2003 Pneumococcal Vaccine Risk Series 0-50 years Aged Out 11/06/2004, 05/08/2004, 03/05/2004, Additional history exists No longer eligible based on patient's age to complete this topic HIB Vaccines Completed 02/05/2005, 04/27, 03/05/2004, Additional history exists IPV Vaccines Completed 04/24/2005, 07/28, 03/05/2004, Additional history exists MMR Vaccines Completed 03/24/2009, 11/06/2004 Varicella Vaccines Completed 03/24/2009, 04/21/2005 Meningococcal ACWY Vaccine Completed 05/12, 05/05/2020, 11/02/2014 Hepatitis A Vaccines Aged Out No long er eligible based on patient's age to complete this topic Rotavirus Vaccines Aged Out No longer eligible based on patient's age to complete this topic Insurance [facility]-MEDICAID Care Teams 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
--- OUTSIDE RECORDS SUMMARY | 2025-07-20 22:03 | XMS_ITS | Clinical Summary ---
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 45 g 4 Active ondansetron (ZOFRAN-ODT) 4 MG disintegrating tabletIndications:N ausea and vomiting, unspecified vomiting type Take 1 Tablet (4 mg) every 8 hours as needed by mouth for Nausea 20 Tablet 4 Active SYSTANE PRESERVATIVE FREE 0.4-0.3 % SOLNIndications:Sub conjunctival hemorrhage of left eye PLACE 1 DROP NEEDED INTO THE LEFT EYE FOR DRY EYES 30 mL 4 Active Active Problems No known active problems Family History Medical History Relation Name Comments No Known Medical Problems Father No Known Medical Problems Mother Relation Name Status Comments Father Mother Social History Tobacco Use Types Packs/Day Years Used Date Smoking Tobacco: Never Smokeless Tobacco: Never Tobacco Cessation:Counseling Given: Not Answered Alcohol Use Standard Drinks/Week Comments Never 0 (1 standard drink = 0.6 oz pur e alcohol) Comments No Sex and Gender Information Value Date Recorded Sex Assigned at Not on file Legal Sex Female 9:35 EDT Gender Identity Not on file Sexual Orientation Not on file Last Filed Vital Signs Vital Sign Reading Time Taken Comments Blood Pressure 106/73 11/11/2023 0956 EDT Pulse 95 11/11/2023 0956 EDT Temperature 36.7 C (98 F) 11/11/2023 0956 EDT Respiratory Rate 18 11/11/2023 0956 EDT Oxygen Saturation 98% 11/11/2023 0956 EDT Inhaled Oxygen Concentration - - Weight 86.6 kg (191 lb) 11/11/2023 0956 EDT Height 165.1 cm (5' 5 ) 08/20/2023 0834 EST Body Mass Index 31.78 08/20/2023 0834 EST Plan of Treatment Health Maintenance Due Date Last Done Comments Wellness Exam 10/30/2006 Yearly Depression Screen 2015 Meningococcal B Vaccine (1 o f 2 - Standard) 2019 PAPSMEAR 10/30/2024 TETANUS / TDAP SHOT 11/02/2024 11/02/2014 COVID-19 (SARS-CoV-2) Vaccin e ( season) 2025 FLU VACCINE (#1) 03/28/2025 08/17/2010, 09/07/2004, 08/07/2004 Meningococcal Vaccine Completed 05/12/2020 , 05/05/2020, 11/02/2014 Pneumococcal Immunization 0-49 Aged Out No longer eligible based on patient's age to complete this topic Insurance [place] [address] MEDICAID [place] [employer]
--- OUTSIDE RECORDS SUMMARY | 2025-07-20 22:03 | XMS_ITS | Clinical Summary ---
Author Organization [facility] Address [address] [place], [place] [id number] Phone Care Team Providers Care [facility] Internship Name Role Phone Unassigned, Doctor Primary Care Provider Unavail able Allergies No known active allergies Medications ibuprofen (ADVIL,MOTRIN) 600 mg tablet Take 1 tablet (600 mg total) by mouth every 6 (six) hours as needed for moderate pain (4-7) for up to 10 days. Take with food. 20 tablet 2 Active ondansetron ODT (ZOFRAN-ODT) 4 mg disintegrating tablet Take 1 tablet (4 mg total) by mouth every 8 (eight) hours as needed for nausea. 12 tablet 2 Active Social History Tobacco Use Types Packs/Day Years Used Date Smoking Tobacco: Never Smokeless Tobacco: Never AUDIT-C Answer Date Recorded Q1: How often do you have a drink containing alcohol? Never 11/06/2021 Q2: How many drinks containi ng alcohol do you have on a typical day when you are drinking? Patient does not drink 2 Q3: How often do you have si x or more drinks on one occasion? Never 11/06/2021 Comments Unknown Sex and Gender Information Value Date Recorded Sex Assigned at Not on file Legal Sex Female 6:50 AM EDT Gender Identity Not on file Sexual Orientation Not on file Last Filed Vital Signs Vital Sign Reading Time Taken Comments Blood Pressure 105/56 11/06/2021 11:07 AM EDT Pulse 82 11/06/2021 11:07 AM EDT Temperature 36.7 C (98.1 F) 11/06/2021 11:07 AM EDT Respiratory Rate 18 11/06/2021 11:07 AM EDT Oxygen Saturation 97% 11/06/2021 11:07 AM EDT Inhaled Oxygen Concentration - - Weight 46.3 kg (102 lb) 11/06/2021 6:52 AM EDT Height 165.1 cm (5' 5 ) 11/06/2021 6:52 AM EDT Body Mass Index 16.97 11/06/2021 6:52 AM EDT Plan of Treatment Not on [place] [id number] Care Teams Network Internship Relationship Specialty Start Date End Date Unassigned, Doctor PCP - General Family Medicine 11/06/21
[2025-07-20 22:22] LABS: Resp Syncy Virus RNA Qual PCR NEGATIVE (Negative); SARS COV2 PCR INHOUSE NEGATIVE (Negative)
[2025-07-20] MEDS: Lactated Ringers 1,000 ML 999 ML IV (22:39)
[2025-07-20] MEDS: iohexoL 350 MG/ML 100 ML INFUS..BTL 85 ML IV (23:44)
[2025-07-21 00:30] VITALS: BP 103/53; PULSE 86; RESP 16; TEMP 36.9; O2SAT 99
--- NOTE | 2025-07-21 00:38 | PC.NURSE ---
re eval patient vitals and pain level, pt reported 8/10 pain level, appeared to be resting comfortably upon entering room, pt then requested food, educated need to confirm with MD d/t CT scan results. patient stated this is fucking bullshit. MD Marroquin made aware and to bedside with U/S.
[2025-07-21 01:12] VITALS: BP 103/53; PULSE 86; RESP 16; TEMP 36.9; O2SAT 99
[2025-07-22 03:42] LABS: HBS Num1 2.04 mIU/mL (0-7.99); HBc Num1 0.07 S/CO (0.00-0.79); HBsAGNum1 0.59 S/CO (0.00-0.99); Hepatitis A Antibody IgM 0.31 Index (0-0.79); Hepatitis B Surface Antigen Negative (Negative); ~HepC Num1 0.38 S/CO (0.00-0.79); ~Hepatitis A Antibody IgM Nonreactive (Nonreactive); ~Hepatitis B Surface Antibody NONREACTIVE (Nonreactive); ~Hepatitis C Antibody Nonreactive (Nonreactive)
== END 2025-07-21 01:14 | disposition home or self-care (01) ==
PROVIDERS: Emergency Provider Emergency Medicine
DX: R10.30 Lower abdominal pain, unspecified (principal); R10.10 Upper abdominal pain, unspecified; R74.01 Elevation of levels of liver transaminase levels; F12.90 Cannabis use, unspecified, uncomplicated; Z03.818 Encounter for observation for suspected exposure to other biological agents ruled out
CPT/HCPCS: 36415; 74177; 76705; 80053; 81001; 83690; 83735; 84702; 85025; 86704; 86706; 86709; 86803; 87086; 87340; 87637; 96361; 96374; 99285; J1885; J7120; Q9967

== ENCOUNTER → 2025-07-20 22:13 | Outpatient (BNV) | payer BC, SELFPAY | PROVIDERS: Emergency Provider Emergency Medicine; Visit Provider Radiology Diagnostic Radiology | DX: R10.31 Right lower quadrant pain (principal); R10.32 Left lower quadrant pain | CPT/HCPCS: 74177 ==